=== PATIENT | female | born 1955 | race Caucasian/White ===

== ENCOUNTER 2017-01-27 10:58 | Inpatient (IN) | payer BC ==
[~2017-01-27] VITALS: Ht 167.6 cm; Wt 105.9 kg
[~2017-01-27 10:58] MED LIST: ASPI325T6 PO; CELEBREX 200MG200 MG PO; FERROUS SU325 MG/TAB PO; LASIX 40MG TABL40 MG PO; NORCO 325 MG-7.1 TAB PO; TENORMIN 5050 MG/TAB PO; TYLENOL PM EXTR1 TA1 PO; ZANTAC 150MG T150 MG PO; ZOCOR 40MG40 MG PO
[2017-02-23] VITALS (11 sets, daily range): BP systolic 124–184; BP diastolic 68–99; PULSE 60–70; TEMP 97.6–98.9
[2017-02-23] MEDS ORDERED: SYNTHROID 0.0.025 MG PO (07:08)
[2017-02-23] MEDS ORDERED: MULTI VITAMINS1 TAB PO (07:09)
[2017-02-23] MEDS ORDERED: VOLTAREN 50MG T50 MG PO (07:09)
[2017-02-23] MEDS ORDERED: PRIL40 PO (07:09)
[2017-02-23] MEDS ORDERED: TYLENOL PM EXTR1 TA1 PO (07:10)
[2017-02-24 00:21] VITALS: BP 142/67; PULSE 72; TEMP 99.1
[2017-02-24 04:22] VITALS: BP 138/67; PULSE 75; TEMP 98.7
[2017-02-24 06:13] LABS: HEMATOCRIT 30.8 % (37.0-47.0); HEMOGLOBIN 9.9 g/dl (12.5-16.0)
[2017-02-24 07:46] VITALS: BP 132/67; PULSE 76; TEMP 99
[2017-02-24 12:13] VITALS: BP 105/64; PULSE 68; TEMP 97.7
[2017-02-24 21:23] VITALS: BP 112/62; PULSE 79; TEMP 98.6
[2017-02-25 00:40] VITALS: BP 115/68; PULSE 76; TEMP 98.3
[2017-02-25 05:16] VITALS: BP 112/63; PULSE 82; TEMP 98.2
[2017-02-25 06:07] LABS: HEMATOCRIT 29.9 % (37.0-47.0); HEMOGLOBIN 9.6 g/dl (12.5-16.0)
[2017-02-25] MEDS ORDERED: CELEBREX 200MG200 MG PO (06:40)
[2017-02-25] MEDS ORDERED: ASPI325T6 PO (06:40)
[2017-02-25] MEDS ORDERED: NORCO 325 MG-7.1 TAB PO (06:41)
[2017-02-25] MEDS ORDERED: SENOKOT S 50 MG1 TAB PO (06:42)
[2017-02-25] MEDS ORDERED: ROXICODONE 55 MG/TAB PO (06:42)
[2017-02-25 08:08] VITALS: BP 106/65; PULSE 86; TEMP 98.1
[2017-02-25 12:13] VITALS: BP 125/64; PULSE 74; TEMP 99
== END 2017-02-25 14:45 | disposition home or self-care (01) | DRG 470 ==
LOC: JCC 02-23 06:35
PROVIDERS: Orthopaedic Surgery
PROC: 0SRB0JA Replacement of Left Hip Joint with Synthetic Substitute, Uncemented, Open Approach (ICD-10-PCS; principal; 2017-02-23 10:45)
DX: M16.12 Unilateral primary osteoarthritis, left hip (principal)
CPT/HCPCS: A4315; A9284; C1713; C1776; J0690; J2250; J2270; J2405; J2704; J3010; J7120

== ENCOUNTER → 2017-02-12 | Outpatient (CLI) | payer BC ==
[~2017-02-12] MED LIST changes: +MULTI VITAMINS1 TAB PO; +PRIL40 PO; +SYNTHROID 0.0.025 MG PO; +VOLTAREN 50MG T50 MG PO
== END ==
LOC: COL.LAB 10:49
DX: Z01.812 Encounter for preprocedural laboratory examination (principal)